=== PATIENT | female | born 1985 | race Caucasian/White ===

== ENCOUNTER 2017-10-12 08:42 | Day surgery (SDC) | payer SELFPAY ==
[2017-10-12] MEDS ORDERED: cefOXitin IV 1 gm in Dextrose 1 GM/50 ML BAG IVPB ONE (10:26)
[2017-10-12] MEDS ORDERED: Propofol 10 mg/ml Inj (20 ML) ONE (10:30)
[2017-10-12] MEDS ORDERED: Midazolam 2 MG/2 ML VIAL ONE (10:38)
[2017-10-12] MEDS ORDERED: HYDROmorphone 0.5 mg/0.5 ml ISec IVP PRN (10:59)
[2017-10-12 11:50] VITALS: O2SAT 100
--- NOTE | 2017-10-12 12:26 | PCM.SURG1 ---
Surgeon's Initial Post Op Note - Surgeon's Notes Surgeon: dr august Transportation Project Manager: none Type of Anesthesia: General LMA Anesthesia Administered By: dr lozano Pre-Operative Diagnosis: 32 yr at 9weeks missed asbortion Operative Findings: see the op report Post-Operative Diagnosis: same Operation Performed: suction d&c Specimen/Specimens Removed: poc. chromosomes Estimated Blood Loss: EBL {In ML}: 20 Blood Products Given: N/A Drains Used: No Drains Post-Op Condition: Good Date of Surgery/Procedure: 10/12/17 Time of Surgery/Procedure: 13:00
[2017-10-12 13:19] VITALS: RESP 16; TEMP 97.8
[2017-10-12 13:46] VITALS: BP 106/68; PULSE 88
--- NOTE | 2017-10-14 07:24 | OP ---
PROCEDURE DATE: 10/12/2017 PREOPERATIVE DIAGNOSIS: A 32-year-old 2, para 0 at 9 weeks missed . POSTOPERATIVE DIAGNOSIS: A 32-year-old 2, para 0 at 9 weeks missed . SURGEON: Ulises Lubin MD PORTABLE FEED MILL OPERATOR: None. TYPE OF ANESTHESIA: General. ANESTHESIA ADMINISTERED BY: Dr. Payton. DESCRIPTION OF PROCEDURE: After informed consent obtained, the patient was brought to the operating room, placed on the table where general anesthesia was given. When the anesthesia was found to be sufficient, the patient was prepped and draped in the usual sterile fashion. Examination of the uterus revealed it to be 8 week size. Anterior lip of the cervix was grasped with a tenaculum. Gentle dilatation of the cervix was done. A 6-[place] and a 7-[place] suction catheter was used to do suction. Products of conception were taken out and sent to pathology. After that, sharp curettage was done and sent to pathology. After that, suction was done again. No more products were coming. A part of the tissue was sent for chromosomes . The patient tolerated the procedure well. Lap, sponge, and instrument counts were correct x2. Ulises Lubin MD
== END 2017-10-12 14:00 | disposition home or self-care (01) ==
LOC: C.SDS 08:42
PROVIDERS: ATTEND Obstetrics & Gynecology
DX: O02.1 Missed abortion (principal); O03.0 Genital tract and pelvic infection following incomplete spontaneous abortion
CPT/HCPCS: 59820; 88233; 88262; 88305; J0694; J1885; J2001; J2250; J2405; J2704; J3010

== ENCOUNTER 2018-07-06 10:30 | Outpatient (CLI) | payer SELFPAY | END 2018-07-06 10:31 | disposition home or self-care (01) | LOC: C.LAB 10:30 ==